=== PATIENT | female | born 1970 | race Asian ===

== ENCOUNTER 2025-04-18 09:52 | Day surgery (SDC) | payer MEDICARE, SELFPAY ==
[2025-04-17 14:28] VITALS: BMI 23.6
[2025-04-18] VITALS (14 sets, daily range): BP systolic 94–114; BP diastolic 57–68; PULSE 65–76; RESP 13–24; TEMP 36.1–36.7; O2SAT 96–98; BMI 23.8
[2025-04-18 09:54] LABS: Basophils % (Auto) 0 % (0-2.5); Eosinophils # (Auto) 0.1 Thou/mm3 (0.0-0.5); Eosinophils % (Auto) 1 % (0-10); Hematocrit 39.7 % (36.0-46.0); Hemoglobin 13.5 g/dL (12.0-16.0); Immature Granulocytes % (Auto) 0 % (0-0); Immature Granulocytes Auto 0.01 Thou/mm3 (0.00-0.00); Lymphocytes # (Auto) 1.3 Thou/mm3 (1.0-4.8); Lymphocytes % (Auto) 20 % (10-50); Mean Corpuscular Volume 91 fL (80-100); Monocytes # (Auto) 0.5 Thou/mm3 (0.0-0.8); Monocytes % (Auto) 8 % (0-12); Neutrophils # (Auto) 4.4 Thou/mm3 (1.8-7.7); Neutrophils % (Auto) 70 % (37-80); Nucleated Red Blood Cell % 0 /100 WBC (0); Platelet Count 190 Thou/mm3 (140-440); RDW Standard Deviation 44.9 fL (36.4-46.3); Red Blood Count 4.36 Miln/mm3 (4.00-5.20); White Blood Count 6.2 Thou/mm3 (3.6-11.0)
[2025-04-18 10:05] LABS: Anion Gap 8 (7-16); BUN/Creatinine Ratio 14 Ratio (12-20); Blood Urea Nitrogen 15 mg/dL (9-23); Calcium 8.3 mg/dL (8.3-10.6); Carbon Dioxide 26.6 mMol/L (20.0-31.0); Chloride 108 mMol/L (98-107); Creatinine (Component) 1.1 mg/dL (0.6-1.3); Estimated Creatinine Clearance 45.1 mL/min (>60); Glucose 90 mg/dL (74-106); Osmolality,Calculated 285 (275-295); Potassium 4.5 mMol/L (3.4-5.1); Sodium 143 mMol/L (136-145); eGFR > 60 See Note
[2025-04-18 10:59] LABS: Prothrombin Time 11.2 Seconds (9.0-12.2)
--- NOTE | 2025-04-18 13:57 | PC.NURSE ---
Addendum entered by Li Benedict RN 04/18/25 14:06: patient to stop home medication brilinta per RN report and continue all other home medications Original Note: 1306 patient is awake alert, breathing unlabored, s/p LHC and RHC by Dr. Higgins, arterial and venous sheath present to right groin. Report received from Trey BUNDY, arterial and venous sheath to be removed now. Patient to recover until 1700 and 4hr post arterial hemostasis. 1310 arterial femoral sheath taken out by Derik BUNDY, manual pressure applied 1330 arterial hemostasis obtained, no active bleeding or hematoma, venous femoral sheat removed by Derik BUNDY, manual pressure applied. 1340 manual pressure removed, no bleeding or hematoma noted to right groin, site covered with gauze and tegaderm. 1345 patient ate sandwich, apple juice and ice chips, no nausea or vomiting
--- NOTE | 2025-04-18 17:35 | PC.NURSE ---
1730 patient is awake, alert, breathing unlabored, dressing to right groin dry with no bleeding or hematoma, patient able to ambulate to bathroom and void, meets discharge criteria, discharge instructions given to patient and family, patient dischrged home in [facility] with all belongings.
--- NOTE | 2025-04-18 18:42 | ESOP_ITS ---
RE: MERCEDEZ MARIN : 1970 DATE OF OPERATION: 04/18/2025 PROCEDURES PERFORMED: 1. Diagnostic left heart catheterization, selective coronary angiogram, left ventricular angiogram, CPT 71423. 2. Conscious sedation 30-minute duration. 3. Iliofemoral angiogram. 4. Ultrasound-guided access of the right femoral artery. 5. Selective cannulation of left internal mammary artery, CPT code 30147. DIAGNOSES: Coronary artery disease, status post bypass graft surgery, congestive heart failure, and mitral regurgitation. HISTORY AND INDICATIONS: The patient is a 54-year-old lady with history of CAD, bypass graft surgery, multiple stent placements and bypass graft to circumflex artery, had severe mitral regurgitation on echo and shortness of breath and anginal symptoms. Nuclear scan showed inferolateral perfusion defect with some reversibility. Hence coronary angiogram, bypass graft angiogram, cardiac catheterization, right and left heart catheterization are recommended for further evaluation to assess if she is a candidate for revascularization and possible mitral valve repair. DESCRIPTION OF PROCEDURE: The patient was brought to the cardiac catheterization laboratory. She was given 2 mg of Versed and 100 mcg of fentanyl for sedation. Right femoral approach was taken. Right femoral artery was cannulated by micropuncture technique. A 5-Turkish sheath was introduced. Right femoral vein was cannulated by micropuncture technique and a 7-Turkish sheath introduced. Ultrasound guidance was used. Selective right and left coronary angiogram was performed with Bipin catheter, 5-Turkish FR4 and FL4 diagnostic catheter. Arterial graft to the circumflex artery was cannulated and angiography was performed. Selective cannulation of left internal mammary artery was the second lateral branch from the aorta was performed. Left internal mammary artery angiogram was performed. Right heart catheterization was performed with Castile-Latrell catheter. Right heart pressures were measured. Cardiac output was obtained. Left heart catheterization was performed with 6-Turkish pig tail_ catheter. Left ventricular angiogram was performed . Iliofemoral angiogram was performed. Manual compression was applied. Hemostasis was secured. Cardiac catheterization showed the following findings: Hemodynamics are as follows: The right atrial pressure was found to be 7 mmHg, right ventricular pressure 33/0, EDP 6 mmHg, pulmonary artery pressure is 28/10, mean pressure 15, pulmonary artery wedge pressure is 12 mmHg, V-wave 20 and C-wave of 10. Left heart catheterization showed LV pressure of 113/3, EDP is 20, aortic pressure 123/70, no gradient across the aortic valve. Left ventricular angiogram showed normal left ventricular wall motion ejection fraction 70%. There is evidence of mild to moderate 1-2+ mitral regurgitation, not significant. Coronary angiogram showed the following findings: Right coronary is large and dominant gives off PDA and posterolateral branches. Right coronary artery gives extensive collaterals to circumflex artery and posterolateral branch. At least 2 branches are seen and visualized clearly. Left main coronary artery is normal. Left anterior descending artery is totally occluded in the proximal segment. Circumflex artery gives off small posterolateral branch, obtuse marginal branch, both are patent. There is stent, which is patent. Left internal mammary artery to LAD is widely patent with excellent flow. The arterial graft to the circumflex artery is completely occluded at the origin. SUMMARY OF FINDINGS: 1. Widely patent MELCHOR to LAD. 2. Total occlusion of the left anterior descending artery. 3. Occluded graft to the circumflex artery, obtuse marginal and posterolateral branch, filling via collaterals from RCA. 4. Dominant right coronary artery. 5. Preserved ejection fraction. 6. Normal right heart pressures. No evidence of significant pulmonary hypertension. RECOMMENDATIONS: The patient recommended medical management. Prognosis is fair since she has collaterals Aspirin will be continued. discintinue Brilinta, there is no indication currently to be discontinued and we will monitor the medical management. DT: 17:25:42 TT: 18:22:00 Ref: [id number] - TID: [id number] MTDD
== END 2025-04-18 17:30 | disposition home or self-care (01) ==
PROVIDERS: PCP Internal Medicine; Referring Provider Internal Medicine Cardiovascular Disease; Visit Provider Internal Medicine Cardiovascular Disease
PROC: (CPT 93458; principal; 2025-04-18 11:30)
DX: I25.119 Atherosclerotic heart disease of native coronary artery with unspecified angina pectoris (principal); I25.82 Chronic total occlusion of coronary artery; I34.0 Nonrheumatic mitral (valve) insufficiency; I50.9 Heart failure, unspecified; Z95.1 Presence of aortocoronary bypass graft
CPT/HCPCS: 93458; 36216; G0278; 36415; 80048; 85025; 85610; 85730; 99152; 99153; A4649; C1769; C1894; J0171; J0461; J1643; J2250; J2310; J2371; J3010; J3490; C1725; J2305